=== PATIENT | female | born 1960 | race Two or more races ===

== ENCOUNTER 2022-03-14 02:02 | Emergency (ER) | payer MEDICAID, OTHER ==
[~2022-03-14] VITALS: Ht 157.5 cm; Wt 76.4 kg
[2022-03-14 02:40] VITALS: BP 141/61
[2022-03-14] MEDS ORDERED: ACETAMINOPHEN 500 MG TAB PO ONE (06:45)
[2022-03-14] MEDS ORDERED: ACET-1080 PO (07:45)
[2022-03-14] MEDS ORDERED: CEPH-510 PO (07:45)
[2022-03-14] MEDS ORDERED: PROM1SOL4 PO (07:45)
== END 2022-03-14 08:01 | disposition home or self-care (01) ==
LOC: ER 02:02
DX: S01.01XA Laceration without foreign body of scalp, initial encounter (principal); J06.9 Acute upper respiratory infection, unspecified; I10 Essential (primary) hypertension; M19.90 Unspecified osteoarthritis, unspecified site; F17.210 Nicotine dependence, cigarettes, uncomplicated; W19.XXXA Unspecified fall, initial encounter; Y93.89 Activity, other specified; Y92.89 Other specified places as the place of occurrence of the external cause; Y99.8 Other external cause status
CPT/HCPCS: 12002; 70450

== ENCOUNTER 2022-03-26 12:05 | Emergency (ER) | payer MEDICAID ==
[~2022-03-26] VITALS: Ht 157.5 cm; Wt 68.9 kg
[~2022-03-26 12:05] MED LIST: ACET-1080 PO; CEPH-510 PO; PROM1SOL4 PO
[2022-03-26 12:20] VITALS: BP 150/72
[2022-03-26] MEDS ORDERED: IBUP800T26 PO (15:51)
[2022-03-26] MEDS ORDERED: BENZ100C19 PO (15:51)
== END 2022-03-26 16:14 | disposition home or self-care (01) ==
LOC: ER 12:05
DX: S01.01XD Laceration without foreign body of scalp, subsequent encounter (principal); I10 Essential (primary) hypertension; F17.210 Nicotine dependence, cigarettes, uncomplicated; X58.XXXD Exposure to other specified factors, subsequent encounter

== ENCOUNTER 2022-12-01 23:26 | Emergency (ER) | payer MEDICAID ==
[~2022-12-01] VITALS: Ht 157.5 cm; Wt 67.0 kg
[~2022-12-01 23:26] MED LIST changes: +BENZ100C19 PO; +IBUP-1455 PO
[2022-12-02 00:04] LABS: Basophils # (auto) 0 10 ^3/uL (0-0.2); Basophils % (auto) 0.3 % (0.0-2.0); Eosinophils # (auto) 0 10 ^3/uL (0-0.8); Eosinophils % (auto) 0.1 % (0.0-7.0); Hematocrit 36.6 % (36.0-46.0); Hemoglobin 12.1 g/dL (12.2-16.2); Lymphocytes # (auto) 1.6 10 ^3/uL (0.4-5.4); Lymphocytes % (auto) 13.1 % (10.0-50.0); Mean Corpuscular Hemoglobin 30.1 pg (28.0-32.0); Mean Corpuscular Volume 91.4 fL (80.0-100.0); Monocytes # (auto) 0.9 10 ^3/uL (0-1.3); Monocytes % (auto) 7.6 % (0.0-12.0); Neutrophils # (auto) 9.9 10 ^3/uL (1.6-8.6); Neutrophils % (auto) 78.9 % (37.0-80.0); Red Cell Distribution Width 15.8 % (11.8-14.3); White Blood Cell 12.5 10^3/uL (4.4-10.8)
[2022-12-02 00:10] LABS: Urine Bacteria FEW /hpf (None Seen); Urine Blood Negative /uL (Negative); Urine Clarity HAZY (Clear); Urine Color Yellow (Yellow); Urine Hyaline Cast FEW /lpf (0 - 2); Urine Mucus FEW (None Seen); Urine Protein, UAD TRACE (Negative); Urine Specific Gravity 1.022 (1.001-1.035); Urine Urobilinogen Normal (Negative); Urine WBC 43 /hpf (0 - 5); Urine pH 5.5 (5.0-8.0)
[2022-12-02 00:15] LABS: INR 0.98 (0.9-1.15); Partial Thromboplastin Time 21.1 SEC (24.5-34.5); Prothrombin Time 10.3 sec (9.3-11.8)
[2022-12-02 00:23] LABS: Albumin 3.5 g/dL (3.4-5.0); Calcium 8.8 mg/dL (8.5-10.1); Magnesium 2.5 mg/dL (1.6-2.6); Potassium 3.1 mmol/L (3.5-5.1)
[2022-12-02 00:29] LABS: Bilirubin, Total 0.3 mg/dL (0.2-1.0); Total Protein 6.8 g/dL (6.4-8.2)
[2022-12-02] MEDS ORDERED: LIDOCAINE VISCOUS 2% 15ML UD MT ONE (01:45)
[2022-12-02] MEDS ORDERED: MAALOX PLUS or MAALOX 30 ML PO ONE (01:45)
[2022-12-02] MEDS ORDERED: NITR-52 PO (02:27)
[2022-12-02 03:45] VITALS: BP 148/78; PULSE 72; RESP 16; TEMP 98.7; O2SAT 97
[2022-12-02] MEDS ORDERED: cefTRIAXone 1GM/50ML D5W 50 ML IV ONE (04:25)
== END 2022-12-02 04:43 | disposition home or self-care (01) ==
LOC: ER 23:28
DX: R07.89 Other chest pain (principal); N39.0 Urinary tract infection, site not specified; F17.210 Nicotine dependence, cigarettes, uncomplicated; I10 Essential (primary) hypertension
CPT/HCPCS: 36415; 71045; 80053; 81001; 83735; 83880; 84484; 85025; 85610; 85730; 93005

== ENCOUNTER 2023-01-14 13:01 | Inpatient (IN) | payer MEDICAID ==
[~2023-01-14] VITALS: Ht 160 cm; Wt 66.0 kg
[2023-01-14] VITALS (7 sets, daily range): BP systolic 119–129; BP diastolic 61–62; PULSE 63–68; RESP 16–18; TEMP 98.1–98.3; O2SAT 96–100
[~2023-01-14 13:01] MED LIST changes: +NITR-52 PO
[2023-01-14 14:04] LABS: Basophils # (auto) 0 10 ^3/uL (0-0.2); Basophils % (auto) 0.2 % (0.0-2.0); Eosinophils # (auto) 0 10 ^3/uL (0-0.8); Eosinophils % (auto) 0.1 % (0.0-7.0); Hemoglobin 9.5 g/dL (12.2-16.2); Lymphocytes # (auto) 0.3 10 ^3/uL (0.4-5.4); Lymphocytes % (auto) 3.4 % (10.0-50.0); Mean Corpuscular Hemoglobin 30.8 pg (28.0-32.0); Mean Corpuscular Hgb Conc. 32.7 g/dL (32.0-36.0); Mean Corpuscular Volume 94.4 fL (80.0-100.0); Monocytes # (auto) 0.3 10 ^3/uL (0-1.3); Monocytes % (auto) 3.2 % (0.0-12.0); Neutrophils # (auto) 7.7 10 ^3/uL (1.6-8.6); Neutrophils % (auto) 93.1 % (37.0-80.0); Nucleated Red Blood Cells % 0.1 %; Red Blood Cells 3.07 10^6/uL (4.0-5.20); Red Cell Distribution Width 16.5 % (11.8-14.3); White Blood Cell 8.3 10^3/uL (4.4-10.8)
[2023-01-14 14:17] LABS: Alanine Aminotransferase 36 U/L (7-40); Alkaline Phosphatase 88 U/L (46-116); Anion Gap 4 (5-15); BUN/Creatinine Ratio 33.8 (10.0-20.0); Blood Urea Nitrogen 23 mg/dL (9-23); Calcium 9.1 mg/dL (8.7-10.4); Carbon Dioxide 24 mmol/L (20-30); Chloride 112 mmol/L (98-107); Glucose 235 mg/dL (74-106); Potassium 4.1 mmol/L (3.5-5.1); Sodium 140 mmol/L (136-145)
[2023-01-14 14:18] LABS: Albumin 3.6 g/dL (3.2-4.8); Aspartate Aminotransferase 23 U/L (13-40); Bilirubin, Total 0.2 mg/dL (0.2-1.0)
[2023-01-14] MEDS ORDERED: VANCOMYCIN 1GM/250ML 250 ML IV ONE (14:45)
[2023-01-14] MEDS ORDERED: PIPERACILLIN-TAZO 4.5GM 100 ML IV ONE (14:45)
[2023-01-14 15:08] LABS: INR 0.94 (0.9-1.15); Prothrombin Time 9.9 sec (9.3-11.8)
[2023-01-14] MEDS ORDERED: ONDANSETRON HCL 4 MG/2 ML VIAL IV PRN (17:00)
[2023-01-14] MEDS ORDERED: DOCUSATE SOD 100 MG CAP PO PRN (17:00)
[2023-01-14] MEDS ORDERED: MORPHINE SULFATE INJ 2 MG/ml SYRG IV PRN (17:00)
[2023-01-14] MEDS ORDERED: NITROGLYCERIN 0.4 MG SL TAB SL PRN (17:00)
[2023-01-14] MEDS ORDERED: ACETAMINOPHEN 325 MG TAB PO PRN (17:00)
[2023-01-14] MEDS ORDERED: FUROSEMIDE 20 MG/2 ML VIAL IV SCH (17:00)
[2023-01-14] MEDS ORDERED: VANCOMYCIN PER PHARMACY 0 MG IV SCH (18:00)
[2023-01-14 18:11] LABS: Triglycerides 205 mg/dL (< 150)
[2023-01-14 18:12] LABS: LDL Cholesterol 76 mg/dL (< 100)
[2023-01-14 18:13] LABS: Cholesterol 163 mg/dL (< 200); HDL Cholesterol 60 mg/dL (40-59)
[2023-01-14] MEDS: IPRATROPIUM BROM 0.5 MG/2.5ML INH SOL NEB SCH ×2 (18:30→23:16)
[2023-01-14 19:22] LABS: % Iron Saturation 5.3 % (15-50)
[2023-01-14] MEDS ORDERED: VANCOMYCIN 1GM/250ML 250 ML IV SCH (20:00)
[2023-01-14] MEDS ORDERED: DEXTROSE (50%) 50ML SYRG IV PRN (20:15)
[2023-01-14 20:24] LABS: Amphetamine Screen, Urine Neg (NEGATIVE); Barbiturate Scree,Urine Neg (NEGATIVE); Benzodiazephine Screen, Urine Neg (NEGATIVE); Cocaine Screen, Urine Neg (NEGATIVE); Opiate Scree,Urine Neg (NEGATIVE)
[2023-01-14] MEDS: PIPERACILLIN-TAZOB 3.375GM 100 ML IV SCH (20:24)
[2023-01-14 20:25] LABS: Cannabinoid Screen, Urine Neg (NEGATIVE); Phencyclidine Screen, Urine Neg (NEGATIVE)
[2023-01-14] MEDS: NYSTATIN (MOUTH-THROAT) 500,000 UNITS/5 ML SUSP MT SCH ×2 (20:46→22:47)
[2023-01-14] MEDS: FUROSEMIDE 20 MG/2 ML VIAL IV SCH (20:47)
[2023-01-14 20:49] LABS: Urine Bacteria FEW /hpf (None Seen); Urine Blood Negative /uL (Negative); Urine Clarity Clear (Clear); Urine Color Yellow (Yellow); Urine Mucus FEW (None Seen); Urine Protein, UAD TRACE (Negative); Urine Specific Gravity 1.026 (1.001-1.035); Urine Urobilinogen Normal (Negative); Urine WBC 3 /hpf (0 - 5); Urine pH 5.5 (5.0-8.0)
[2023-01-14] MEDS ORDERED: SODIUM FERR GLUC 62.5MG/5ML 125 MG in SODIUM CHL 0.9% 100 ML IV ONE (21:45)
[2023-01-14] MEDS ORDERED: ERGOCALCIFEROL 50,000 UNIT(1.25MG) CAP PO SCH (21:45)
[2023-01-14] MEDS: HYDROmorphone HCL 2 MG/ML VL/or syr IV PRN (22:41)
[2023-01-14] MEDS: ATORVASTATIN 20 MG TAB PO SCH (22:47)
[2023-01-14] MEDS: FAMOTIDINE 20 MG TAB PO SCH (22:47)
[2023-01-14] MEDS: ACCU-CHEK COMFORT CURVE STRIP VI SCH (22:50)
[2023-01-14] MEDS ORDERED: DICL1GEL73 TOP (23:07)
[2023-01-14] MEDS ORDERED: SIMV20TA20 PO (23:07)
[2023-01-14] MEDS ORDERED: OMEP1CAP70 PO (23:07)
[2023-01-14] MEDS ORDERED: ALBU108A5 PO (23:07)
[2023-01-14] MEDS ORDERED: LISI10TA34 PO (23:07)
[2023-01-14] MEDS ORDERED: FLUT1INH28 INH (23:07)
[2023-01-14] MEDS ORDERED: FAMO20TA10 PO (23:07)
[2023-01-14] MEDS ORDERED: LEVO150T10 PO (23:07)
[2023-01-14] MEDS: ENOXAPARIN SOD 60 MG/0.6 ML SYRINGE SC SCH (23:18)
[2023-01-14] MEDS: InsuLIN REG 1unit/0.01ml Soln (100units/ml) SC SCH (23:19)
[2023-01-15] VITALS (18 sets, daily range): BP systolic 105–148; BP diastolic 62–82; PULSE 63–85; RESP 16–20; TEMP 98–99.1; O2SAT 94–100
[2023-01-15] MEDS: guaiFENesin-DM 100/10mg/5ml SYR PO PRN ×3 (01:02→22:55)
[2023-01-15] MEDS ORDERED: PNEUMOCOCCAL VACC POLYS 25 MCG/0.5 ML VIAL IM ONE (02:30)
[2023-01-15] MEDS: PIPERACILLIN-TAZOB 3.375GM 100 ML IV SCH ×3 (05:06→19:00)
[2023-01-15] MEDS: NYSTATIN (MOUTH-THROAT) 500,000 UNITS/5 ML SUSP MT SCH ×4 (05:57→22:21)
[2023-01-15] MEDS: LEVOTHYROXINE SODIUM 25 MCG TAB PO SCH (05:57)
[2023-01-15] MEDS: FUROSEMIDE 20 MG/2 ML VIAL IV SCH ×2 (05:57→18:00)
[2023-01-15] MEDS: ACCU-CHEK COMFORT CURVE STRIP VI SCH ×4 (05:57→22:56)
[2023-01-15] MEDS: InsuLIN REG 1unit/0.01ml Soln (100units/ml) SC SCH ×4 (06:04→22:00)
[2023-01-15] MEDS: IPRATROPIUM BROM 0.5 MG/2.5ML INH SOL NEB SCH ×5 (07:00→22:22)
[2023-01-15] MEDS ORDERED: LEVOTHYROXINE SODIUM 50 MCG TAB PO SCH (07:00)
[2023-01-15 07:12] LABS: Alanine Aminotransferase 32 U/L (7-40); Albumin 3.6 g/dL (3.2-4.8); Alkaline Phosphatase 82 U/L (46-116); Anion Gap 7 (5-15); Aspartate Aminotransferase 18 U/L (13-40); BUN/Creatinine Ratio 45.7 (10.0-20.0); Bilirubin, Total 0.5 mg/dL (0.2-1.0); Blood Urea Nitrogen 21 mg/dL (9-23); Calcium 9.1 mg/dL (8.5-10.1); Carbon Dioxide 28 mmol/L (20-30); Chloride 108 mmol/L (98-107); Glucose 111 mg/dL (74-106); Potassium 3.6 mmol/L (3.5-5.1); Sodium 143 mmol/L (136-145)
[2023-01-15] MEDS: FERROUS SULFATE 325mg EC TAB PO SCH ×2 (08:00→18:00)
[2023-01-15 09:06] LABS: Basophils # (auto) 0 10 ^3/uL (0-0.2); Basophils % (auto) 0.1 % (0.0-2.0); Eosinophils # (auto) 0 10 ^3/uL (0-0.8); Eosinophils % (auto) 0.2 % (0.0-7.0); Hematocrit 29.8 % (36.0-46.0); Hemoglobin 9.7 g/dL (12.2-16.2); Lymphocytes # (auto) 0.5 10 ^3/uL (0.4-5.4); Lymphocytes % (auto) 6.5 % (10.0-50.0); Mean Corpuscular Hemoglobin 30.7 pg (28.0-32.0); Mean Corpuscular Hgb Conc. 32.6 g/dL (32.0-36.0); Mean Corpuscular Volume 94.1 fL (80.0-100.0); Monocytes # (auto) 0.2 10 ^3/uL (0-1.3); Monocytes % (auto) 3.1 % (0.0-12.0); Neutrophils # (auto) 6.8 10 ^3/uL (1.6-8.6); Neutrophils % (auto) 90.1 % (37.0-80.0); Nucleated Red Blood Cells % 0.2 %; Red Blood Cells 3.17 10^6/uL (4.0-5.20); Red Cell Distribution Width 16.2 % (11.8-14.3); White Blood Cell 7.5 10^3/uL (4.4-10.8)
[2023-01-15] MEDS: HCTZ 25 MG TAB PO SCH (10:00)
[2023-01-15] MEDS: FAMOTIDINE 20 MG TAB PO SCH ×2 (10:00→22:21)
[2023-01-15] MEDS: ASPirin 81 mg TAB PO SCH (10:00)
[2023-01-15] MEDS: LISINOPRIL 10 MG TAB PO SCH (10:00)
[2023-01-15] MEDS: ENOXAPARIN SOD 60 MG/0.6 ML SYRINGE SC SCH ×2 (19:52→22:21)
[2023-01-15] MEDS: VANCOMYCIN 1GM/250ML 250 ML IV SCH (19:54)
[2023-01-15] MEDS: ATORVASTATIN 20 MG TAB PO SCH (22:21)
[2023-01-15] MEDS: HYDROmorphone HCL 2 MG/ML VL/or syr IV PRN (22:22)
[2023-01-16] VITALS (16 sets, daily range): BP systolic 108–134; BP diastolic 57–67; PULSE 56–92; RESP 16–20; TEMP 97.8–98.2; O2SAT 93–100
[2023-01-16] MEDS ORDERED: ALBUMIN 25% 250 ML IV ONE (02:00)
[2023-01-16] MEDS: PIPERACILLIN-TAZOB 3.375GM 100 ML IV SCH ×3 (03:03→18:11)
[2023-01-16] MEDS: FUROSEMIDE 20 MG/2 ML VIAL IV SCH (05:45)
[2023-01-16] MEDS: NYSTATIN (MOUTH-THROAT) 500,000 UNITS/5 ML SUSP MT SCH ×4 (05:47→21:16)
[2023-01-16] MEDS: LEVOTHYROXINE SODIUM 25 MCG TAB PO SCH (05:59)
[2023-01-16] MEDS: ACCU-CHEK COMFORT CURVE STRIP VI SCH ×4 (06:59→21:30)
[2023-01-16] MEDS: InsuLIN REG 1unit/0.01ml Soln (100units/ml) SC SCH ×4 (06:59→21:29)
[2023-01-16] MEDS: VANCOMYCIN 1GM/250ML 250 ML IV SCH (07:04)
[2023-01-16] MEDS: IPRATROPIUM BROM 0.5 MG/2.5ML INH SOL NEB SCH ×4 (07:50→19:52)
[2023-01-16] MEDS: FERROUS SULFATE 325mg EC TAB PO SCH ×2 (08:00→18:10)
[2023-01-16] MEDS ORDERED: IOHEXOL 350 MG/ML 100ML IJ ONE (11:15)
[2023-01-16] MEDS: ASPirin 81 mg TAB PO SCH (13:12)
[2023-01-16] MEDS: ENOXAPARIN SOD 60 MG/0.6 ML SYRINGE SC SCH (13:13)
[2023-01-16] MEDS: FAMOTIDINE 20 MG TAB PO SCH ×2 (13:13→21:19)
[2023-01-16] MEDS: LISINOPRIL 10 MG TAB PO SCH (13:15)
[2023-01-16] MEDS: HCTZ 25 MG TAB PO SCH (13:15)
[2023-01-16] MEDS: FUROSEMIDE 40 MG/4 ML VIAL IV SCH (18:17)
[2023-01-16] MEDS: APIXABAN 5 MG TAB PO SCH (21:17)
[2023-01-16] MEDS: ATORVASTATIN 20 MG TAB PO SCH (21:17)
[2023-01-16] MEDS: guaiFENesin-DM 100/10mg/5ml SYR PO PRN (21:33)
[2023-01-17] VITALS (13 sets, daily range): BP systolic 117–137; BP diastolic 68–83; PULSE 68–100; RESP 16–19; TEMP 98.2–98.8; O2SAT 94–100
[2023-01-17] MEDS: PIPERACILLIN-TAZOB 3.375GM 100 ML IV SCH ×2 (02:39→10:51)
[2023-01-17] MEDS: NYSTATIN (MOUTH-THROAT) 500,000 UNITS/5 ML SUSP MT SCH ×3 (06:21→18:00)
[2023-01-17] MEDS: LEVOTHYROXINE SODIUM 25 MCG TAB PO SCH (06:22)
[2023-01-17] MEDS: guaiFENesin-DM 100/10mg/5ml SYR PO PRN (06:23)
[2023-01-17] MEDS: FUROSEMIDE 40 MG/4 ML VIAL IV SCH ×2 (06:31→18:00)
[2023-01-17] MEDS: InsuLIN REG 1unit/0.01ml Soln (100units/ml) SC SCH ×3 (06:32→17:36)
[2023-01-17] MEDS: ACCU-CHEK COMFORT CURVE STRIP VI SCH ×3 (06:32→17:33)
[2023-01-17] MEDS: IPRATROPIUM BROM 0.5 MG/2.5ML INH SOL NEB SCH ×5 (07:02→18:00)
[2023-01-17 07:04] LABS: Basophils # (auto) 0 10 ^3/uL (0-0.2); Basophils % (auto) 0.6 % (0.0-2.0); Eosinophils # (auto) 0 10 ^3/uL (0-0.8); Eosinophils % (auto) 0.7 % (0.0-7.0); Hematocrit 28.8 % (36.0-46.0); Hemoglobin 9.4 g/dL (12.2-16.2); Lymphocytes % (auto) 21.7 % (10.0-50.0); Mean Corpuscular Hemoglobin 30.2 pg (28.0-32.0); Mean Corpuscular Hgb Conc. 32.8 g/dL (32.0-36.0); Mean Corpuscular Volume 92.1 fL (80.0-100.0); Monocytes # (auto) 0.3 10 ^3/uL (0-1.3); Monocytes % (auto) 6.4 % (0.0-12.0); Neutrophils # (auto) 3.3 10 ^3/uL (1.6-8.6); Neutrophils % (auto) 70.6 % (37.0-80.0); Nucleated Red Blood Cells % 0.1 %; Red Blood Cells 3.12 10^6/uL (4.0-5.20); Red Cell Distribution Width 16.5 % (11.8-14.3); White Blood Cell 4.7 10^3/uL (4.4-10.8)
[2023-01-17 08:30] LABS: Anion Gap 6 (5-15); Carbon Dioxide 31 mmol/L (20-30); Chloride 105 mmol/L (98-107); Potassium 3.4 mmol/L (3.5-5.1); Sodium 142 mmol/L (136-145)
[2023-01-17 08:31] LABS: Calcium 8.5 mg/dL (8.5-10.1)
[2023-01-17 08:36] LABS: BUN/Creatinine Ratio 28.4 (10.0-20.0); Blood Urea Nitrogen 21 mg/dL (9-23); Glucose 101 mg/dL (74-106)
[2023-01-17] MEDS: FERROUS SULFATE 325mg EC TAB PO SCH ×2 (08:39→18:00)
[2023-01-17] MEDS: HYDROmorphone HCL 2 MG/ML VL/or syr IV PRN (08:40)
[2023-01-17 09:25] LABS: Magnesium 1.8 mg/dL (1.6-2.6)
[2023-01-17] MEDS: LISINOPRIL 10 MG TAB PO SCH (09:55)
[2023-01-17] MEDS: APIXABAN 5 MG TAB PO SCH (09:55)
[2023-01-17] MEDS: ASPirin 81 mg TAB PO SCH (09:55)
[2023-01-17] MEDS: FAMOTIDINE 20 MG TAB PO SCH (09:55)
[2023-01-17] MEDS: HCTZ 25 MG TAB PO SCH (09:56)
[2023-01-17] MEDS ORDERED: APIX5TAB PO (15:54)
[2023-01-17] MEDS ORDERED: POTA1TAB61 PO (15:54)
[2023-01-17] MEDS ORDERED: FURO1TAB31 PO (15:54)
[2023-01-17] MEDS ORDERED: CIPR-173 PO (15:54)
== END 2023-01-17 18:50 | disposition home health service (06) | DRG 383 ==
LOC: ER 13:01 → TELE 17:03 → TELE-WESTW 21:23
PROVIDERS: ADMIT Internal Medicine; ATTEND Internal Medicine
DX: L03.115 Cellulitis of right lower limb (principal); I26.99 Other pulmonary embolism without acute cor pulmonale; I50.33 Acute on chronic diastolic (congestive) heart failure; I82.411 Acute embolism and thrombosis of right femoral vein; L97.919 Non-pressure chronic ulcer of unspecified part of right lower leg with unspecified severity; B96.5 Pseudomonas (aeruginosa) (mallei) (pseudomallei) as the cause of diseases classified elsewhere; E11.65 Type 2 diabetes mellitus with hyperglycemia; D64.9 Anemia, unspecified; I11.0 Hypertensive heart disease with heart failure; L03.116 Cellulitis of left lower limb; L97.929 Non-pressure chronic ulcer of unspecified part of left lower leg with unspecified severity; E78.5 Hyperlipidemia, unspecified; F17.210 Nicotine dependence, cigarettes, uncomplicated; F32.A Depression, unspecified; F41.9 Anxiety disorder, unspecified; E03.9 Hypothyroidism, unspecified; E55.9 Vitamin D deficiency, unspecified; I87.8 Other specified disorders of veins; J45.909 Unspecified asthma, uncomplicated; Z79.899 Other long term (current) drug therapy; Z83.3 Family history of diabetes mellitus; Z88.8 Allergy status to other drugs, medicaments and biological substances; Z98.42 Cataract extraction status, left eye
CPT/HCPCS: 36415; 71045; 71275; 73590; 80048; 80053; 80061; 80307; 81001; 82306; 82607; 82962; 83036; 83540; 83550; 83735; 83880; 84443; 84484; 85025; 85379; 85610; 87040; 87077; 87086; 87186; 87205; 93306; 93970; 94640; 96365; 96375; G0378; J1815; J2543